=== PATIENT | male | born 1955 | race Two or more races ===

== ENCOUNTER 2024-12-16 18:55 | Emergency (ER) | payer MEDICARE, MEDICAID, SELFPAY ==
--- NOTE | 2024-12-16 19:05 | XR_ITS ---
Examination: Shoulder,right, 3 views Technique: Shoulder AP internal rotation, AP external rotation, Y view shoulder, 3 views Exam date and time :December 16, 2024, 193 hrs. Indications: Patient fell today with into the shoulder, shoulder pain. Findings: Anterior subcoracoid shoulder dislocation No fracture depicted Impression: Anterior subcoracoid shoulder dislocation
--- NOTE | 2024-12-16 19:24 | XR_ITS ---
Examination: Humerus 2 views right Technique: Humerus, AP lateral 2 views Date and time of exam: December 16, 2024, 1938 hrs. Indications: Patient fell today with injury to the right arm, right arm pain Findings: Anterior subcoracoid shoulder dislocation Humerus appears intact Impression: Anterior subcoracoid shoulder dislocation
[2024-12-16 19:44] VITALS: BP 172/96; PULSE 98; RESP 18; TEMP 36.7; O2SAT 96
--- NOTE | 2024-12-16 20:05 | PD.EDRME ---
Rapid Medical Screening Exam RME Arrival date/time: 12/16/24 18:55 69M with history of HTN and psych presents to ED with R shoulder/UE pain after he accidentally stepped into a large hole at work. Patient denies other pain. Chief Complaint: Extremity Injury, Upper Time Seen by Provider: 12/16/24 19:20 Vital signs: Vital Signs Temperature 98.1 F 12/16/24 19:44 Pulse Rate 98 12/16/24 19:44 Respiratory Rate 18 12/16/24 19:44 Blood Pressure 172/96 H 12/16/24 19:44 Pulse Oximetry (%) 96 12/16/24 19:44 Oxygen Delivery Method Room Air 12/16/24 19:44
--- NOTE | 2024-12-16 20:34 | PD.EDUPEX ---
Upper Extremity Injury RME/HPI General Chief Complaint: Extremity Injury, Upper Stated Complaint: INJURED R) SHOULDER/ARM Time Seen by Provider: 12/16/24 19:20 Arrival date/time: 12/16/24 18:55 RME / HPI RME / HPI narrative: 12/16/24 18:55 69M with history of HTN and psych presents to ED with R shoulder/UE pain after he accidentally stepped into a large hole at work. Patient denies other pain. -------- Dr. Muniz?s Main ED Evaluation: 69yo male presents to the ED for a chief complaint of right shoulder pain. Patient accidentally stepped into a large hole at work and fell around 1800, hitting his right shoulder on the cement. No head strikes or loss of consciousness. Patient denies any other injuries. Patient is right-hand dominant. NKA. Related Data Home Medications ?Medication ?Instructions ?Recorded ?Confirmed hydrochlorothiazide 25 mg tablet 25 mg PO QDAY 05/13/20 11/28/22 lisinopril 20 mg tablet 20 mg PO QDAY 05/13/20 11/28/22 sertraline 50 mg tablet 50 mg PO QDAY 11/24/22 11/28/22 Allergies Allergy/AdvReac Type Severity Reaction Status Date / Time No Known Allergies Allergy Verified 12/16/24 18:58 Review of Systems Review of Systems Systems Reviewed: All systems reviewed, normal except as documented Past Medical History Past Medical History NEUROLOGIC: Negative Neurological Disorders or Seizures CARDIAC: Positive Cardiac Disorders, Hypercholesterolemia and Hypertension; Negative Congestive Heart Failure RESPIRATORY: Negative Chronic Obstructive Pulmonary Disease (COPD) GASTROINTESTINAL: Positive Gastrointestinal Disorders GENITOURINARY: Negative Genitourinary Disorders or Renal Disease MUSCULOSKELETAL: Positive Musculoskeletal Disorders and Fractures ENDOCRINE: Negative Endocrine Disorders, Diabetes Mellitus Type 1 or Diabetes Mellitus Type 2 HEMATOLOGIC: Negative Blood Disorders PSYCHO/SOCIAL: Positive Depression OTHER HISTORY: Positive Measles; Negative Falls, Blood Transfusions, Anesthesia Reactions, MRSA or Cancer Family History FAMILY HISTORY: Positive Family Cardiac Disorders Surgical History SURGICAL: Negative Cardiac Surgery or Endocrine Surgery Social History SMOKING STATUS: Never smoker ED Exam Narrative Physical exam: Generally patient is alert in no obvious distress, heart regular rate and rhythm, lungs clear to auscultation equal bilaterally, abdomen is obese soft nondistended nontender extremity shows squared off deformity to the right upper extremity with the right upper extremity being completely neurovascularly intact. Course Quality Measures none Orders Category Date Time Status XR humerus RT min 2V Stat Exams 12/16/24 19:24 Completed XR shoulder RT min 2V Stat Exams 12/16/24 19:05 Completed XR shoulder RT min 2V Stat Exams 12/16/24 21:01 Taken Ketamine Inj Med 12/16/24 20:40 Discontinued 100 mg IVP X1 ONE Vital Signs Vital signs: Vital Signs Temperature 98.1 F 12/16/24 19:44 Pulse Rate 98 12/16/24 19:44 Respiratory Rate 18 12/16/24 19:44 Blood Pressure 172/96 H 12/16/24 19:44 Pulse Oximetry (%) 96 12/16/24 19:44 Oxygen Delivery Method Room Air 12/16/24 19:44 Extremity Injury MDM Narrative MDM Narrative:: Scribe Attestation: 12/16/24 - Millie Ferrara am scribing for and in the presence of Dr. Muniz. Procedure note: After consent was obtained procedural sedation was used using 100 mg of ketamine IV. Using traction countertraction the right shoulder dislocation was easily reduced. Follow-up x-ray of the right shoulder showed successful reduction. The right shoulder was placed in a sling. Patient was fully recovered out of procedural sedation. There were no complications. Patient tolerated procedure well. Patient data External records reviewed:: [facility] previous records (Per chart review, patient was seen here on 01/13/20 for cast removal.) Clinical information provided by:: patient Social determinants that could affect healthcare access:: none Patient has the following chronic illnesses:: HTN, HLD How is presenting disease/condition affected by chronic disease/condition?: uneffected by Evaluation data The following diagnostics were reviewed and interpreted by me:: radiology exam(s) Lab and/or radiology exams considered but not ordered:: none Interpretation Summary: [facility] Report Signed Patient: JAVIER FRY Record#: [id number] Birthdate: 1955 Age/Sex: 69 / M Location: [facility] Attending Dr: Ordering Physician: Samuel Ahmadi PA-C Date of Service: 12/16/24 Procedure(s): XR shoulder RT min 2V Accession Number(s): [id number] cc: Maurice Dupree MD; Gallito Gaona MD; Samuel Ahmadi PA-C~ Examination: Shoulder,right, 3 views Technique: Shoulder AP internal rotation, AP external rotation, Y view shoulder, 3 views Exam date and time :December 16, 20241937 hrs. Indications: Patient fell today with into the shoulder, shoulder pain. Findings: Anterior subcoracoid shoulder dislocation No fracture depicted Impression: Anterior subcoracoid shoulder dislocation Dictated By: Gallito Gaona MD Signed By: <Electronically signed by Gallito Gaona MD in OV> 12/16/242104 [facility] Report Signed Patient: JAVIER FRY Record#: [id number] Birthdate: 1955 Age/Sex: 69 / M Location: [facility] Attending Dr: Ordering Physician: Samuel Ahmadi PA-C Date of Service: 12/16/24 Procedure(s): XR humerus RT min 2V Accession Number(s): [id number] cc: Maurice Dupree MD; Gallito Gaona MD; Samuel Ahmadi PA-C~ Examination: Humerus 2 views right Technique: Humerus, AP lateral 2 views Date and time of exam: December 16, 20241937 hrs. Indications: Patient fell today with injury to the right arm, right arm pain Findings: Anterior subcoracoid shoulder dislocation Humerus appears intact Impression: Anterior subcoracoid shoulder dislocation Dictated By: Gallito Gaona MD Signed By: <Electronically signed by Gallito Gaona MD in OV> 12/16/242105 Medications / Prescriptions Medications or Prescriptions considered but not ordered:: none Medication administrations:: Medication Administration History Discontinued Medications Ketamine HCl (Ketamine 50 Mg/Ml Vial 10 Ml) 100 mg IVP X1 ONE Stop: 12/16/24 20:41 Last Admin: 12/16/24 20:58 Dose: 100 mg Documented By: WO Comments: Adminstered by Dr. Muniz see above Consultations Consultation(s) initiated? (list below): No Diagnosis Upper Extremity Injury Differential Diagnosis: other (See MDM.) Most likely diagnosis given after review of the tests above:: see clinical impression below Admission Indicated Admission indicated?: not indicated Admission Request Was there a request for admission?: No Disposition Plan Disposition Plan: Discharge Discharge Attestation Discharge Attestation: The patient and all family members were given an opportunity to ask questions and understood the discharge instructions. Discharge instructions specifically effects, indications for sooner follow up or return to the emergency department, and the expected course of current diagnosis. Patient condition: Stable Discharge Plan Plan Patient Disposition: HOME (Self Care) Prescriptions/Referrals Prescriptions/Med Rec: No Action hydrochlorothiazide 25 mg tablet 25 mg PO QDAY lisinopril 20 mg tablet 20 mg PO QDAY sertraline 50 mg tablet 50 mg PO QDAY Patient Comments: TAKE 1 TABLET BY MOUTH ONCE DAILY Referrals: Maurice Dupree MD [Primary Care Provider, Family Practice] - In 1 week Problem List Clinical Impression: Dislocated shoulder Patient/Caregiver Discharge Instructions Education Materials: ED Joint Dislocation Additional Instructions: Keep the right arm in the sling for the next 4 weeks. Follow-up with your Workmen's Comp. doctor. You may use Tylenol and/or ibuprofen as needed for pain. Patient is not to lift the right arm at the shoulder past horizontal for the next 4 weeks. Print Language: Iranian Stand Alone Forms: [facility] Award Info., Patient Portal Info Letter
[2024-12-16] MEDS: KETAMINE 50 MG/ML VIAL 10 ML 100 MG IVP (20:58)
[2024-12-16 21:00] VITALS: BP 208/83; PULSE 98; RESP 18; TEMP 36.8; O2SAT 99
--- NOTE | 2024-12-16 21:01 | XR_ITS ---
Examination: AP shoulder single view Technique: AP internal rotation shoulder single view Date and time: December 16, 2024, 2100 hrs., Comparison 12/16/20241942 hrs. Indications: Shoulder dislocation postreduction today. Findings: Satisfactory reduction shoulder dislocation No fracture Impression: Satisfactory reduction shoulder dislocation
[2024-12-16 21:07] VITALS: PULSE 121; RESP 18; O2SAT 99
[2024-12-16 22:10] VITALS: BP 168/72; PULSE 87; RESP 18; TEMP 36.8; O2SAT 96
== END 2024-12-16 22:12 | disposition home or self-care (01) ==
PROVIDERS: Emergency Provider Emergency Medicine; PCP Family Medicine
DX: S43.004A Unspecified dislocation of right shoulder joint, initial encounter (principal); W19.XXXA Unspecified fall, initial encounter; I10 Essential (primary) hypertension
CPT/HCPCS: 23650; 73030; 73060; 96374; 99283

== ENCOUNTER → 2024-12-25 | Outpatient (CLI) | payer OTHER, SELFPAY ==
--- NOTE | 2024-12-25 10:41 | XR_ITS ---
Examination: Knee, left , 3 views Technique: Knee AP, lateral, oblique 3 views Date and time of exam: December 25, 2024 1047 hours INDICATIONS: Patient fell December 16, 2024 with into the knee, knee pain. FINDINGS: No fracture or dislocation. Mild to moderate tricompartment osteoarthritis Small knee effusion IMPRESSION: No fracture or dislocation
== END | disposition home or self-care (01) ==
PROVIDERS: PCP Family Medicine; Referring Provider Family Medicine; Visit Provider Nurse Practitioner Family
DX: M23.92 Unspecified internal derangement of left knee (principal)
CPT/HCPCS: 73562

== ENCOUNTER 2025-03-02 16:34 | Emergency (ER) | payer MEDICARE, SELFPAY ==
[2025-03-02 16:36] VITALS: BP 201/80; BP 209/96; PULSE 77; RESP 18; TEMP 37.1; O2SAT 97; BMI 33.4
[2025-03-02 16:41] VITALS: PULSE 87; O2SAT 98
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
[2025-03-02 17:36] VITALS: BP 184/89; PULSE 88
[2025-03-02] MEDS: ACETAMINOPHEN w/COD 300-30 TABLET 2 TAB PO (17:37)
== END 2025-03-02 18:23 | disposition home or self-care (01) ==
PROVIDERS: Emergency Provider Emergency Medicine; PCP Family Medicine
DX: S33.5XXA Sprain of ligaments of lumbar spine, initial encounter (principal); S29.9XXA Unspecified injury of thorax, initial encounter; V89.2XXA Person injured in unspecified motor-vehicle accident, traffic, initial encounter
CPT/HCPCS: 71045; 72100; 99282; A9270